=== PATIENT | male | born 1950 | race Caucasian/White ===

== ENCOUNTER 2020-11-29 09:09 | Emergency (ER) | payer BC, MEDICARE ==
[~2020-11-29] VITALS: Ht 188 cm; Wt 107.5 kg
[~2020-11-29 09:09] MED LIST: BP MED; LEVSOD75 PO; OMEP20ER PO
== END 2020-11-29 11:32 | disposition home or self-care (01) ==
LOC: ER 09:09
DX: U07.1 COVID-19 (principal); I10 Essential (primary) hypertension; Z79.899 Other long term (current) drug therapy
CPT/HCPCS: 99283-25; M0243; Q0243

== ENCOUNTER 2023-12-03 10:56 | Day surgery (SDC) | payer BC, MEDICARE ==
[~2023-12-03] VITALS: Ht 188 cm; Wt 102.9 kg
[2023-12-03] VITALS (16 sets, daily range): BP systolic 116–156; BP diastolic 72–139
[~2023-12-03 10:56] MED LIST changes: +ASPI81CH PO; +ATOR40TA PO; +Acetaminophen 500 MG Tab PO SCH; +CeFAZolin Sodium 2,000 MG in NS 100 ML IV SCH; +Chlorhexidine Mouth Care 15 ML UDC MT SCH; +LOSA50 PO; +Lactated Ringer's 1,000 ML IV SCH; +METO25ER PO; +OxyCODONE HCL 10 MG TABCR PO SCH; +Ropivacaine 0.5% HCl/Pf 123.125 MG,EPINEPHrine HCL 0.25 MG,Ketorolac Tromethamine 15 MG... INFIL SCH; +Tranexamic Acid 100 ML IV SCH; +Vancomycin HCL 1,000 MG in NS 250 ML IV SCH
[2023-12-03] MEDS ORDERED: propofoL 40 ML IV ONE (12:05)
[2023-12-03] MEDS ORDERED: FentaNYL Citrate 50 MCG/ML 2 ML Injection ONE ×2 (12:06→16:28)
--- NOTE | 2023-12-03 12:33 | NUR ---
Ambulatory in Day Surgery. History, Chart, Medications and Allergies reviewed before start of procedure. Lungs clear T/O to Auscultation. Patient confirms NPO status and agrees with scheduled surgery. Pre-Op teaching done. Pt verbalizes understanding. PT AT BEDSIDE. PT BELONGINGS PLACED UNDERNEATH GURNEY FOR SAFEKEEPING. PT JEWELRY GIVEN TO FOR SAFEKEEPING.
[2023-12-03] MEDS ORDERED: HYDROmorphone HCl/Pf 1MG SYR IV PRN (13:40)
[2023-12-03] MEDS ORDERED: Lactated Ringer's 1,000 ML IV SCH (13:45)
[2023-12-03] MEDS ORDERED: Magnesium Hydroxide Conc 10 ML UDC PO PRN (13:45)
[2023-12-03] MEDS ORDERED: DiphenhydrAMINE HCL 25 MG Cap PO PRN (13:45)
[2023-12-03] MEDS ORDERED: Ondansetron HCl 2 MG / ML 2ML Vial IV PRN (13:45)
[2023-12-03] MEDS ORDERED: FLU VACC TS2024-25(6MOS UP)/PF 45 MCG/0.5 ML SYRINGE IM SCH (13:45)
[2023-12-03] MEDS ORDERED: OxyCODONE HCL 5 MG TAB PO PRN ×2 (13:50)
[2023-12-03] MEDS ORDERED: Promethazine HCl 25 MG Tab PO PRN (13:50)
[2023-12-03] MEDS ORDERED: Bisacodyl 10 MG Supp PR PRN (13:50)
[2023-12-03] MEDS ORDERED: Metoclopramide HCl 5MG / ML 2ML Vial IV PRN (13:50)
[2023-12-03] MEDS ORDERED: propofoL 50 ML IV ONE (14:00)
[2023-12-03] MEDS ORDERED: HYDROmorphone HCl/Pf 1MG SYR ONE ×2 (14:24→15:13)
[2023-12-03] MEDS ORDERED: ePHEDrine Sulfate 50 MG/ML 1ML Injection ONE (14:29)
[2023-12-03] MEDS ORDERED: Vancomycin HCl 1000 MG ADDvantage ONE (14:30)
[2023-12-03] MEDS ORDERED: Acetaminophen 500 MG Tab PO SCH (16:00)
--- NOTE | 2023-12-03 17:20 | NUR ---
PT ARRIVED TO ROOM VIA HOSPITAL BED. A&O X4, PLEASENT MOOD. INCISION SITE C/D/I, COLD PACK IN PLACE. PPP. VSS. ON 2LNC. AT BEDSIDE, BED IN LOWEST POSITION, CALL LIGHT WITHIN REACH. SNACKS AND WATER AT BEDSIDE.
[2023-12-03] MEDS ORDERED: Ketorolac Tromethamine 15mg Vial IV SCH (18:00)
[2023-12-03] MEDS ORDERED: Losartan Potassium 50 MG Tab PO SCH (21:00)
[2023-12-03] MEDS ORDERED: Metoprolol Succinate 25 MG TABCR PO SCH (21:00)
[2023-12-03] MEDS ORDERED: Docusate Sodium 100 MG Cap PO SCH (21:00)
[2023-12-03] MEDS ORDERED: CeFAZolin Sodium 2,000 MG in NS 100 ML IV SCH (22:00)
[2023-12-03] MEDS ORDERED: NS 250 ML IV PRN (22:00)
[2023-12-04] MEDS ORDERED: Vancomycin HCL 1,000 MG in NS 250 ML IV ONE (01:00)
[2023-12-04 04:56] LABS: BASOPHILS ABSOLUTE AUTO 0.01 K/mm3 (0.00-0.23); BASOPHILS PERCENT AUTO 0 % (0-2); EOSINOPHILS PERCENT AUTO 0 % (0-6); Hematocrit 37.3 % (37.0-53.0); Hemoglobin 12.4 g/dL (13.5-17.5); IMMATURE GRAN ABSOLUTE AUTO 0.06 K/mm3 (0.00-0.10); IMMATURE GRAN PERCENT AUTO 0 % (0-1); LYMPHOCYTES ABSOLUTE AUTO 0.67 K/mm3 (0.84-5.20); LYMPHOCYTES PERCENT AUTO 5 % (21-46); MONOCYTES PERCENT AUTO 5 % (4-13); Mean Corpuscular HGB 31.3 pg (26.0-34.0); Mean Corpuscular HGB Conc 33.2 g/dL (31.5-36.5); Mean Corpuscular Volume 94 fL (80-100); Mean Platelet Volume 9.7 fL (9.1-12.4); NEUTROPHILS ABSOLUTE AUTO 12.29 K/mm3 (1.96-9.15); NEUTROPHILS PERCENT AUTO 90 % (41-73); Platelet Count 257 K/mm3 (150-400); RDW Coefficient Variation 12.6 % (11.7-14.2); RDW Standard Deviation 43.8 fL (35.1-46.3); Red Blood Cell Count 3.96 M/mm3 (4.30-5.90); White Blood Cell Count 13.73 K/mm3 (4.00-11.30)
[2023-12-04 04:58] VITALS: BP 114/69
[2023-12-04 05:12] LABS: Bun/Creatinine Ratio 24.9 (12.0-20.0); Calcium, Blood 8.6 mg/dL (8.5-10.1); Creatinine, Blood 0.92 mg/dL (0.60-1.20); Magnesium, Blood 1.9 mg/dL (1.6-2.4); Potassium, Blood 4.4 mmol/L (3.5-5.5)
--- NOTE | 2023-12-04 06:43 | NUR ---
SHIFT SUMMARY PT A&O X4, VSS. AFEBRILE. REMAINS ON RA, SPO2 94-96%. NO ACUTE EVENTS OVERNIGHT. PT TOLERATING PO INTAKE. PT DID VOID X2, PT REPORTS FIRST VOID WAS "SMALL", SECOND VOID WAS MUCH "LARGER BUT SOFT STREAM". PT AMBULATING TO RESTROOM, SBA WITH FWW; TOLERATING WELL. PT AMBULATED IN ROOM X2 THIS SHIFT FROM ONE END TO THE OTHER, AND DID WELL. KAYLA DRESSING IN PLACE; C/D/I. PT PAIN 4-7/10. REST, REPOSITIONING AND MEDICAITON PER EMAR PROVIDED; MEDICATION BROUGHT PAIN DOWN TO 2-3/10. PT DID NOT SLEEP MUCH AND DID HAVE C/O OF PAIN. SCHEDULED PAIN MEDS PER EMAR, ABX PER EMAR. DENIES N/V. CALL LIGHT IN REACH, ABLE TO MAKE NEEDS KNOWN. WILL UPDATE ONCOMING RN.
[2023-12-04 07:38] VITALS: BP 127/76
[2023-12-04] MEDS ORDERED: OXAYDO5 M3 PO (08:11)
[2023-12-04] MEDS ORDERED: XARELTO20 MG PO (08:12)
[2023-12-04] MEDS ORDERED: PROM25 PO (08:12)
[2023-12-04] MEDS ORDERED: Atorvastatin 40 MG Tab PO SCH (09:00)
[2023-12-04] MEDS ORDERED: Levothyroxine Sodium 0.112 MG Tab PO SCH (09:00)
[2023-12-04] MEDS ORDERED: Aspirin 81 MG Chew PO SCH (09:00)
[2023-12-04] MEDS ORDERED: Rivaroxaban 10 MG Tab PO SCH (09:00)
[2023-12-04] MEDS ORDERED: Trimethoprim/Sulfamethoxazole DS Tab PO SCH (09:00)
--- NOTE | 2023-12-04 10:31 | NUR ---
DISCHARGE SUMMARY POD1 L TKA, A/OX4, VSS, TOLERATING PO, AMBULATING WELL, VOIDING INDEPENDENTLY, SURGICAL DRESSING CHANGED THIS AM BY ORTHO WITH NEW AQUACELL IN PLACE AND C/D/I AT TIME OF DISCHARGE, PIV REMOVED DURING DISCHARGE INSTRUCTIONS WHICH INCLUDED HOME CARE, MEDICATIONS, AND FOLLOW UP APPOINTMENTS. PROVIDED EXTRA DRESSINGS PER DRESSING CHANGE DIRECTIONS FROM ORTHO. NO QUESTIONS AT THIS TIME, ESCORTED OUT VIA WC TO PRIVATE AUTO TO GO HOME.
== END 2023-12-04 10:18 | disposition home or self-care (01) ==
LOC: ORSCMMR 10:56 → ORD 14:30 → ORSCMMR 14:30 → SURS 17:00 → ORSCMMR 12-04 10:18
PROVIDERS: Orthopaedic Surgery
PROC: 0SRD0J9 Replacement of Left Knee Joint with Synthetic Substitute, Cemented, Open Approach (ICD-10-PCS; principal; 2023-12-03 14:30)
DX: M17.12 Unilateral primary osteoarthritis, left knee (principal); I10 Essential (primary) hypertension; I25.10 Atherosclerotic heart disease of native coronary artery without angina pectoris; E78.5 Hyperlipidemia, unspecified; E03.9 Hypothyroidism, unspecified; Z79.899 Other long term (current) drug therapy; Z87.891 Personal history of nicotine dependence
CPT/HCPCS: 27447; 0055T; 36415; 73560-LT; 80048; 83735; 85025; 97110; 97116; 97162; 97530; A9270; C1713; C1776; J0171; J0690; J0735; J1170; J1885; J2704; J2795; J3010; J3370; J7050; J7120